=== PATIENT | male | born 1940 | race Caucasian/White ===

== ENCOUNTER 2016-11-03 08:49 | Inpatient (IN) | payer MEDICARE, OTHER ==
[~2016-11-03] VITALS: Ht 167.6 cm; Wt 78.5 kg
[~2016-11-03 08:49] MED LIST: CRESTOR20 MG PO; GLUCOSAMINE1000 MG PO; METFORMIN HCL500 MG PO; ZOCOR20 MG PO; [UNRECOGNIZED DRUG - REMARK]
[2016-11-03] MEDS ORDERED: METFORMIN HCL500 M1 PO (13:00)
--- NOTE | 2016-11-03 14:03 | EKG ---
[facility] [address] [facility] [place] [address] Signed Sinus bradycardia with marked sinus arrhythmia Otherwise normal ECG No previous ECGs available Confirmed by DEBORAH JUAREZ MD ([id number]) on 11/03/2016 2:02:58 PM Electronically Signed By: DEBORAH JUAREZ MD 11/03/16 1403 PATIENT NAME: LU RIBERA Electrocardiogram DATE OF : 42 PHYSICIAN: DEBORAH JUAREZ MD REPORT #: [id number] REPORT IS CONFIDENTIAL AND NOT TO BE RELEASED WITHOUT AUTHORIZATION
[2016-11-04] MEDS ORDERED: OXYCODON-ACETA1 EAC2 PO (11:47)
--- NOTE | 2016-11-07 11:31 | OR ---
[facility] [address] [place], [place] [address] Signed DATE OF SERVICE: 11/03/2016 PREOPERATIVE DIAGNOSIS: Large incarcerated right inguinal hernia. POSTOPERATIVE DIAGNOSIS: Large incarcerated right inguinal hernia, indirect sliding type (sliding organ, bladder, fat). PROCEDURE: Repair of incarcerated sliding right inguinal hernia, prolonged complicated difficult. Implantation of Prolene mesh (underlay technique). SURGEON: Baldev Tinoco MD. ANESTHESIA: General endotracheal by Liset Mazariegos CRNA, and local 20 mL of 0.25% Marcaine with epinephrine. INDICATIONS: This 76-year-old white man is known with a right inguinal hernia for quite some time, but in the past 24 hours, he has had increasing pain and nonreducible bulge in the area. He presented to the emergency room where he was evaluated by Dr. Moon. An ultrasound was performed, which confirmed bowel within the large right inguinal hernia and the testicle was identified as having some signs of atrophy and compromised blood flow (probably chronic of course). He has been fluid resuscitated and is admitted at this time to undergo right inguinal hernia repair for incarcerated right inguinal hernia. He understands the risks of bleeding, infection, need for laparotomy or bowel resection and other unforeseen complications and wished to proceed. FINDINGS: The very edematous hernia sac and incarcerated small bowel was noted. It was reduced ultimately. There was a fair amount of inflammatory fluid, but no sign of purulence or necrosis of bowel. The medial wall of the large hernia sac was made up of bladder fat and extensively so. Most of it was spared. High ligation of the sac and repair of the floor with implantation of Prolene mesh in the properitoneal space was accomplished without problem. An ilioinguinal nerve branch was identified and preserved throughout. Good repair has been accomplished. The testicle itself appeared reasonably normal clinically. The cord structures were preserved as well. PROCEDURE IN DETAIL: The patient was brought to the operating room, given a general endotracheal anesthetic. Preoperative antibiotic Ancef was given. Sequential compression device stockings were applied. The abdomen was clipped and prepped with chlorhexidine solution and draped Electronically Signed By: BALDEV TINOCO MD 11/07/16 1131 PATIENT NAME: LU RIBERA OPERATIVE REPORT DATE OF : 42 PHYSICIAN: BALDEV TINOCO MD REPORT #: [id number] REPORT IS CONFIDENTIAL AND NOT TO BE RELEASED WITHOUT AUTHORIZATION [facility] [address] [place], [place] [address] Signed sterilely. An incision was made over the bulky right groin mass. The mass would not reduce prior to incision despite attempts to do so even with relaxation. Dissection was carried through the subcutaneous tissue with electrocautery, ultimately identifying the external oblique. External oblique was bulging as would be expected from the large incarcerated hernia. This was incised along its fibers, divided in the external ring. Beneath this was an edematous hernia sac with cord structures. Using blunt dissection, this was freed from the floor a bit more. Ultimately, the hernia sac could be freed from the cord structures more fully. The incarceration persisted. Release I should say of the external oblique did allow for more manipulation of the hernia sac contents and reduction ultimately of what appeared to be small bowel. It appeared to be fatty tissue within the liquid-filled hernia sac and most likely this represented tinea epiploica, but subsequently was found to in fact be bladder fat. The hernia sac was freed from the cord structures more fully. The testicle on the right side had been withdrawn into the distal aspect of the inguinal canal, but never fully delivered into the wound proper. It appeared to be normal size for age. Once the cord structures were f alex from the hernia sac more completely, a Micky drain was passed around the cord structures. The external oblique was reflected medially and laterally after dissection of the ilioinguinal nerve away from the cord structures and reflected around the external oblique to protect it. The hernia sac now isolated and without sign of incarcerated viscus was tented and incised. Inflammatory fluid that was reasonably clear was noted. Intraabdominal inspection showed no sign of ischemic bowel or anything of that sort. There was a fair amount of fatty tissue that made up the medial wall of the hernia sac. Ultimately, I found it to be bladder fat. The hernia sac was incised more fully toward the internal ring and digital examination of the abdomen showed no sign of other abnormality. Excess fluid was suctioned free. The hernia sac was dissected free from the sliding component as much as possible, but not all could be excised. Redundant hernia sac was ultimately excised. The hernia sac remnants were closed with a running 2-0 silk suture invaginating the bladder fat medially into the peritoneal cavity. An Allis clamp was applied to the tendon of the transversus abdominis. Redundant cremasteric muscle tissue was excised more fully exposing the cord. Cord structures were identified as normal. The ring was attenuated quite markedly in some of the floor as well. Using cautery, the floor of the canal was incised with electrocautery and the properitoneal fat was bluntly . The segment of Prolene mesh was cut to an elliptical configuration and secured in an underlay technique with interrupted 2-0 Prolene suture. The shelving edge of Poupart ligament was used laterally and the tendon of the transversus abdominis medially. A defect was cut in the graft to accommodate the cord structures. The tails of the graft were secured laterally as well. Care was taken to make the aperture for the cord structures snugged, but not excessively tight. The ilioinguinal nerve was not incorporated in any suture. It was replaced in the canal. 20 Electronically Signed By: BALDEV TINOCO MD 11/07/16 1131 PATIENT NAME: LU RIBERA OPERATIVE REPORT DATE OF : 42 PHYSICIAN: BALDEV TINOCO MD REPORT #: [id number] REPORT IS CONFIDENTIAL AND NOT TO BE RELEASED WITHOUT AUTHORIZATION [facility] [address] [place], [place] [address] Signed mL of 0.25% Marcaine with epinephrine was injected locally. The external oblique was reapproximated over the cord taking special care to avoid incorporation of the ilioinguinal nerve itself. This was accomplished with 2-0 Vicryl. Eze's layer was r e approximated with interrupted 2-0 Vicryl and skin closed with running subcuticular 3-0 Vicryl. Steri-Strips were applied as was Mepilex silver sponge dressing and an OpSite. The patient was ultimately extubated and transferred to recovery room in good condition having suffered no complications. Sponge, needle, and instruments counts were correct x3. MD MEGHAN Davis/Bib /[id number] cc: Dr. Esvin Hogue [facility] Electronically Signed By: BALDEV TINOCO MD 11/07/16 1131 PATIENT NAME: LU RIBERA ALVARO OPERATIVE REPORT DATE OF : 42 PHYSICIAN: BALDEV TINOCO MD REPORT #: [id number] REPORT IS CONFIDENTIAL AND NOT TO BE RELEASED WITHOUT AUTHORIZATION
--- NOTE | 2016-11-07 11:31 | HP ---
[facility] [address] [place], [place] [address] Signed DATE OF ADMISSION: 11/03/16 REASON FOR ADMISSION Incarcerated right inguinal hernia with possible bowel obstructive symptoms. 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 He has had a right-sided hernia for the past 4 years, but today began having significant swelling in the right groin with increasing pain and some nausea and vomiting. He has right scrotal swelling as well. He was evaluated in the emergency room by Dr. Veto Hogue and a scrotal ultrasound was performed as well as scanning of the right inguinal canal. A large loop of bowel was noted in the right hemiscrotum indicating an inguinal hernia. Right testicle is somewhat atrophic showing decreased arterial vascularity. There is some scrotal fluid as well. The hernia is not reducible at this time. He feels better since vomiting earlier. His past medical history does include dyslipidemia. He has no underlying cardiac pulmonary or renal problems. A 12-lead EKG showed sinus bradycardia with a heart rate of 53. The patient had yet to void since being in the emergency room. REVIEW OF SYSTEMS He denies any chest pain, or shortness of breath. He has had no dysphagia, dysuria. Denies any hematemesis or blood per rectum. SOCIAL HISTORY He is accompanied by his . 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 PHYSICAL EXAMINATION GENERAL: A pleasant white man who does not look systemically toxic. Trachea is midline. There is no carotid bruit. CHEST: Clear. HEART: Regular without murmur. ABDOMEN: Relatively flat and nondistended and not focally tender. He has a very large right inguinal hernia which extends into the hemiscrotum. It is clearly not reducible. It is mildly tender. EXTREMITIES: No clubbing, cyanosis, or edema. Ultrasound was reviewed and findings were as described. An amorphous finding of the right groin is noted. No doubt related to bowel within the hernia. Electronically Signed By: BALDEV TINOCO MD 11/07/16 1131 PATIENT NAME: LU RIBERA HISTORY AND PHYSICAL DATE OF : 42 PHYSICIAN: BALDEV TINOCO MD REPORT #: [id number] REPORT IS CONFIDENTIAL AND NOT TO BE RELEASED WITHOUT AUTHORIZATION [facility] [address] [place] [id number] Signed ASSESSMENT He has an incarcerated hernia with vomiting and confirmed bowel loop within the hernia. He needs to be admitted given fluid resuscitation and undergo operation to include reduction of the hernia. I discussed with the patient and his and friend the risks of bleeding, infection, recurrence, need for laparotomy to reduce the hernia and unlikely need but possible need for bowel resection. 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 It is quite unlikely that the hernia is compromising the testicle in the slightest. I will review the labs that have been obtained thus far. Permission will be undertaken and operation performed later today. MD MEGHAN Davis/Bib /[id number] cc: Filemon Lopez DO Electronically Signed By: BALDEV TINOCO MD 11/07/16 1131 PATIENT NAME: LU RIBERA HISTORY AND PHYSICAL DATE OF : 42 PHYSICIAN: BALDEV TINOCO MD REPORT #: [id number] REPORT IS CONFIDENTIAL AND NOT TO BE RELEASED WITHOUT AUTHORIZATION
== END 2016-11-04 13:20 | disposition home or self-care (01) | DRG 352 ==
LOC: ED 08:49 → MS 11:15
PROVIDERS: ADMIT Surgery
PROC: 0YU50JZ Supplement Right Inguinal Region with Synthetic Substitute, Open Approach (ICD-10-PCS; principal; 2016-11-03 16:30)
DX: K40.30 Unilateral inguinal hernia, with obstruction, without gangrene, not specified as recurrent (principal); E78.00 Pure hypercholesterolemia, unspecified; R73.03 Prediabetes; Z88.0 Allergy status to penicillin; Z79.84 Long term (current) use of oral hypoglycemic drugs; Z79.899 Other long term (current) drug therapy
CPT/HCPCS: 00830; 74020; 76857; 76870; 80053; 81001; 82150; 83690; 85025; 85730; 88300; 93005; 93010; C1781; J0690; J1170; J1885; J2405; J3010; J7030; J7120